=== PATIENT | female | born 1950 | race Caucasian/White ===

== ENCOUNTER 2018-01-06 07:31 | Emergency (ER) | payer MEDICARE ==
[~2018-01-06] VITALS: Ht 175.3 cm; Wt 89.5 kg
[2018-01-06] MEDS ORDERED: ketorolac trometh inj. 60 MG/2 ML VIAL IM ONE (08:10)
[2018-01-06] MEDS ORDERED: acetaminophen 325mg tablet PO ONE (08:10)
[2018-01-06] MEDS ORDERED: HYDR-3965 PO (08:31)
[2018-01-06 08:32] VITALS: BP 129/80
== END 2018-01-06 08:58 | disposition home or self-care (01) ==
LOC: ER 07:32
DX: M25.562 Pain in left knee (principal); G89.29 Other chronic pain; Z79.899 Other long term (current) drug therapy
CPT/HCPCS: 73564; 96372; 99284; A6449; J1885